=== PATIENT | male | born 1960 | race Caucasian/White ===

== ENCOUNTER 2016-05-28 12:14 | Emergency (ER) | payer OTHER ==
[~2016-05-28] VITALS: Ht 175.3 cm; Wt 119.8 kg
[~2016-05-28 12:14] MED LIST: ANALGESIC325 M1 PO; ASPIR-LOW81 MG PO; ASPIR-TRIN325 M1 PO; ASPIRIN325 MG PO; ASPIRIN81 M2 PO; AUGMENTIN875 MG PO; CARVEDILOL12.5 MG PO; CARVEDILOL25 MG PO; COLACE100 MG PO; COREG12.5 M1 PO; COREG25 M1 PO; COREG6.25 MG PO; CRESTOR10 MG PO; CRESTOR20 MG PO; CYANOCOBALAM1000 MCG PO; CYCLOSET0.8 MG PO; Coreg PO; EPLERENONE25 MG PO; Ecotrin PO; FUROSEMIDE20 MG PO; GAS RELIEF125 MG PO; HUMALOG100 UNIT/1 SC; IMDUR120 MG PO; IMDUR60 MG PO; INSPRA25 MG PO; INSULIN PUMP SCCONT; ISOSORBIDE MONO60 MG PO; JANUVIA100 MG PO; KLOR-CON M1010 MEQ PO; LANTUS 10100 UNITS/ SC; LANTUS 3 M100 UNITS/ SC; LANTUS100 UNIT/1 SQ; LASIX20 MG PO; LASIX20 MG/2 ML PO; LEVAQUIN750 MG PO; LIPITOR80 MG PO; LISINOPRIL40 MG PO; LITE COAT ASPI325 M1 PO; LO-DOSE ASPIRIN81 M1 PO; LOVAZA1 GM PO; Lasix PO; METFORMIN HCL500 MG PO; NIASPAN,SLO-NI500 MG PO; NIASPAN1000 MG PO; NITROGLYCERIN0.4 MG SL; NOVALOG SC; NOVOLOG PE100 UNITS/ SC; NOVOLOG100 UNIT/1 SQ; NOVOLOG100 UNIT/2 SQ; PANTOPRAZOLE SO40 MG PO; PLAVIX75 MG PO; PREDNISONE20 MG PO; PRINIVIL10 MG PO; PRINIVIL20 MG PO; PROTONIX40 MG PO; PROVENTIL HFA6.7 GM IH; SPIRONOLACTONE25 MG PO; TANZEUM30 MG/0.5 SC; VASCEPA1 GM PO; VENTOLIN HFA18 GM IH; VICTOZA 2-0.6 MG/0.1 SC; VITAMIN D1000 UNIT PO; VITAMIN D31000 UNIT PO; XIFAXAN550 MG PO; ZANTAC150 MG PO; ZESTRIL40 MG PO; ZETIA10 MG PO; ZOFRAN4 MG PO; Zestril,Prinivil PO
[2016-05-28 13:12] LABS: HEMATOCRIT 41.1 % (38.0-50.0); MCH 24.2 PG (29.0-34.0); MCHC 30.9 G/DL (30.0-36.0); MCV 78.3 FL (86-99); MEAN PLAT.VOLUME 10.1 uM^3 (9.0-12.4); PLATELET COUNT 231 K/uL (156-360); RBC DIS.WIDTH-CV 13.6 % (11.8-14.6); RBC DIS.WIDTH-SD 38.4 % (39-53); RED BLOOD COUNT 5.25 M/uL (4.00-5.50); WHITE BLOOD COUNT 6.6 K/uL (4.1-10.2)
[2016-05-28 13:24] LABS: D-DIMER ELISA 0.99 mg/L FEU (< 0.57); INTER. NORMALIZED RATIO 1.1; PROTHROMBIN TIME 11.2 (9.2-11.2); PTT 24.7 (25-32)
[2016-05-28 13:28] LABS: CHLORIDE 105 mEq/L (99-109); POTASSIUM 4.4 mEq/L (3.7-5.4); SODIUM 140 mEq/L (136-147)
[2016-05-28 13:30] LABS: GLUCOSE 162 mg/dL (70-99)
[2016-05-28 13:31] LABS: ANION GAP 8 MEQ/L (2-14)
[2016-05-28 13:33] LABS: TROP-I INTERPRETATION NEGATIVE; TROPONIN-I 0.03 ng/mL (0.0-0.30)
[2016-05-28 13:34] LABS: GFR ESTIMATE (CALCULATED) > 59 mL/min/; UREA NITROGEN (BUN) 13 mg/dL (9-23)
[2016-05-28] MEDS ORDERED: VITAMIN B122500 MCG PO (13:42)
[2016-05-28 16:11] LABS: TROP-I INTERPRETATION NEGATIVE; TROPONIN-I 0.02 ng/mL (0.0-0.30)
[2016-05-28] MEDS ORDERED: FLONASE16 G1 BOTH NARES (17:09)
[2016-05-28] MEDS ORDERED: CLARITIN,ALAVAR10 MG PO (17:09)
[2016-05-28 17:30] VITALS: BP 143/83
== END 2016-05-28 17:45 | disposition home or self-care (01) ==
LOC: EME 12:14
PROVIDERS: Emergency Medicine
DX: I50.9 Heart failure, unspecified (principal); J32.9 Chronic sinusitis, unspecified; E11.65 Type 2 diabetes mellitus with hyperglycemia; I25.2 Old myocardial infarction; Z95.5 Presence of coronary angioplasty implant and graft; Z79.84 Long term (current) use of oral hypoglycemic drugs
CPT/HCPCS: 71020; 71275; 80048; 83880; 84484; 85027; 85379; 85610; 85730; 93005; 99281; 99285; J1940